=== PATIENT | female | born 1930 | race Caucasian/White ===

== ENCOUNTER 2016-11-09 12:24 | Day surgery (SDC) | payer MEDICARE ==
[2016-11-07 11:43] LABS: BASOPHILS 0.2 %; BASOPHILS ABSOLUTE 0.01 10/3/uL (0.0-0.16); EOSINOPHILS 0.9 %; EOSINOPHILS ABSOLUTE 0.05 10/3/uL (0.0-0.53); HEMATOCRIT 41.6 % (36.0-48.0); IMMATURE GRANULOCYTES 0.2 %; IMMATURE GRANULOCYTES ABSOLUTE 0.01 10/3/uL (0.0-0.11); LYMPHOCYTES 29.3 %; LYMPHOCYTES ABSOLUTE 1.67 10/3/uL (0.67-4.30); MEAN CORPUS HGB CONC 33.7 g/dL (32.0-36.0); MEAN CORPUSCULAR HEMOGLOB 31.5 pg (26.0-34.0); MEAN CORPUSCULAR VOLUME 93.7 fL (80-100); MEAN PLATELET VOLUME 9.9 fL (9.2-13.0); MONOCYTES 9.8 %; MONOCYTES ABSOLUTE 0.56 10/3/uL (0.21-1.20); NEUTROPHILS 59.6 %; NEUTROPHILS ABSOLUTE 3.39 10/3/uL (2.02-8.40); PLATELET COUNT 259 10/3/uL (150-400); RBC DISTRIBUTION WIDTH 13.6 % (12.0-16.0); RED CELL COUNT 4.44 10/6/uL (4.0-5.6); WHITE BLOOD CELLS 5.7 10/3/uL (4.5-10.5)
[2016-11-07 11:44] LABS: MANUAL DIFF NO %
[2016-11-07 11:53] LABS: BUN (BLOOD UREA NITROGEN) 16 MG/DL (6-23); CHLORIDE, SERUM 103 MMOL/L (96-112); CO2 (CARBON DIOXIDE) 30 MMOL/L (24-34); CREATININE 0.95 MG/DL (0.55-1.02); GFR AFRICAN AMERICAN 64 ML/MIN (>=60); GFR NON AFRICAN AMERICAN 55 ML/MIN (>=60); GLUCOSE, SERUM 95 MG/DL (60-99); POTASSIUM, SERUM 3.9 MMOL/L (3.5-5.3); SODIUM, SERUM 141 MMOL/L (135-148)
[2016-11-07 12:50] LABS: ASCORBIC ACID (UR NOT ORDER) NEG (NEG); BILIRUBIN, URINE NEGATIVE (NEG); KETONE, URINE NEGATIVE (NEG); LEUKOCYTE ESTERASE(NOT OR TRACE (NEG); WBC (NOT ORDERED) (RFLEX) 4 (0-5)
--- NOTE | ~2016-11-09 | OP ---
Record Of Operation [facility] [address] [place]. [address] NAME: STACY ORTEGA : 34 STATUS : [facility]#: [id number] AGE: 86 ADM/REG DATE : 11/09/16 MR#: [id number] REPORT SERV DATE: 11/09/16 DICTATED BY: YANN MILLER JR. DATE: 11/09/16 REPORT STATUS : Draft TRANSCRIBED BY: MODL DATE: 11/09/16 DATE OF PROCEDURE: 11/09/2016 NAME OF OPERATION: Excision of basal cell carcinoma of left ala of the nose and full- thickness skin graft. PREOPERATIVE DIAGNOSIS: Basal cell carcinoma of the nose. POSTOPERATIVE DIAGNOSIS: Basal cell carcinoma of the nose. OPERATIVE FINDINGS: The patient had a growth on the left side of the nose measured approximately 1 cm in diameter on the left ala. DESCRIPTION OF PROCEDURE: The patient was given general anesthesia, and after satisfactory level of anesthesia has been obtained, the face was prepared and draped in the usual manner. The point of incision was marked with a marking pen and the left mastoid area was selected as a donor site. Those areas were infiltrated with 1% Xylocaine with adrenaline. The lesion of the nose was then completely excised with a #15 blade. The bleeders were controlled by electrocautery, and after satisfactory hemostasis was accomplished, the graft which measures 1.5 x 1.5 cm was taken from the left mastoid area. The graft was then defatted and sutured in place with interrupted 5-0 Prolene sutures. A sterile dressing was applied using Xeroform gauze. The donor site was closed meticulously with interrupted 4-0 Prolene sutures. Light Band-Aid dressings were applied. The operation ended. The patient tolerated the procedure well. She was brought back to recovery room in satisfactory condition. GUEVARA/JING Yann Miller Jr., M.D. / [id number] CC: Kenji Seanz Jr., M.D.
[~2016-11-09 12:24] MED LIST: AMB10 PO; NORV5 PO; PREMARIN VAG42.5 GM V; TOPXL50 PO; VITAMIN C100 MG PO
== END 2016-11-09 17:56 | disposition home or self-care (01) ==
LOC: SDC 12:24
PROC: 0HB1XZZ Excision of Face Skin, External Approach (ICD-10-PCS; 2016-11-09)
PROC: 0HR1X73 Replacement of Face Skin with Autologous Tissue Substitute, Full Thickness, External Approach (ICD-10-PCS; 2016-11-09)
PROC: 09QKXZZ Repair Nasal Mucosa and Soft Tissue, External Approach (ICD-10-PCS; principal; 2016-11-09 14:00)
DX: C44.311 Basal cell carcinoma of skin of nose (principal); I10 Essential (primary) hypertension; M19.90 Unspecified osteoarthritis, unspecified site; Z90.710 Acquired absence of both cervix and uterus; Z88.8 Allergy status to other drugs, medicaments and biological substances; Z88.5 Allergy status to narcotic agent; Z79.899 Other long term (current) drug therapy
CPT/HCPCS: 80048; 81001; 85025; 88305; 93005; J0690; J2405; J3010